=== PATIENT | male | born 1975 ===

== ENCOUNTER 2023-12-09 06:14 | Day surgery (SDC) | payer BC, SELFPAY ==
[2023-12-09 06:20] VITALS: BP 105/76; BMI 25.8
[2023-12-09] MEDS: TYLENOL 1000 MG PO (06:36)
[2023-12-09] MEDS: NORMOSOL-R 1000 IV (06:37)
[2023-12-09 06:43] VITALS: BMI 25.8
--- NOTE | 2023-12-09 07:49 | W.SUR.PREOP ---
Pre-Operative Surgical Note
-
I have examined this patient prior to the performance of the scheduled procedure.
The patient's condition is unchanged from the time of the current History and
Physical and the patient is able to undergo the scheduled procedure.
--- NOTE | 2023-12-09 07:49 | W.IMMPOSTOP ---
Surgical Immed Post Op Note
-
Primary Surgeon: Cliff Colvin MD
Assisting Surgeon: None
Pre-op Diagnosis: Left groin mass, right thigh skin tag
Post-op Diagnosis: Same
Procedure Performed:
1. Excision of subcutaneous mass, left groin
2. Excision of skin tag, right thigh
Anesthesia Type: General
Specimen / Cultures:
1. Left groin mass
Estimated Blood Loss: 1 cc
Complications: None
Operative Findings: Roughly 2 x 2 x 1 cm pearly white kidney been shaped mass in the subcutaneous scrotum/left groin ?Leiomyoma. Right thigh skin tag.
POST OP PLAN:
Will discharge home
[2023-12-09 07:52] VITALS: BP 93/56
--- NOTE | 2023-12-09 07:52 | OR.RPT ---
Operative Report
Operative Report
Patient Name: Jose Alberto Askew
: 1975
Date of Operation: 12/09/2023
Preoperative Diagnosis: Left groin mass, right thigh skin tag
Postoperative Diagnosis: Same
Procedure(s):
1.� Excision of subcutaneous mass, left groin
2.� Excision of skin tag, right thigh
Surgeon(s):
Dr. Colvin
Campus Ambassador(s):
None
Anesthesia: MAC
Estimated Blood Loss: 1 cc
Urine Output: None
Drains/Lines/Implants: None
Specimens:
1. Left groin mass
Indication for surgery:
This is a 48-year-old male with a palpable and mildly symptomatic lump on his left groin/upper left scrotum. After discussion of risk benefits and alternatives he elected and was consented for surgery. On the day of surgery, he also mentioned a
right thigh skin tag that was also somewhat bothersome which he asked us to remove.
Findings at the time of surgery:
Patient had a 2 x 2 x 1 cm, pearly white kidney mccain shaped subcutaneous mass in his left groin/upper scrotum. Routine right thigh skin tag.
Details of the operation:
The patient was brought to the operating room a placed in the supine position. After appropriate sedation by anesthesia, the area of the back was prepped and draped in the usual fashion. An elliptical incision over natural skin line was made over
the mass in the left groin and carried down through the subcutaneous tissue. A roughly 2 x 2 x 1 cm white mass was dissected off of the surrounding tissues using sharp with a 15 blade and blunt dissection as well as electrocautery. It was freed
circumferentially and as passed off the field. The cavity was irrigated and hemostasis was achieved. The space was closed with interrupted 3-0 Vicryl subdermals. The right thigh skin tag was removed using a 15 blade. Both wounds were then
dressed with Dermabond. All counts were correct at the end of procedure. The patient was then transferred to the PACU for recovery.
I was the attending physician and performed the procedure with no assistance. I was present for all portions of the case
Cliff Colvin MD
[2023-12-09 08:00] VITALS: BP 92/50
[2023-12-09 08:15] VITALS: BP 93/62
[2023-12-09 08:30] VITALS: BP 96/66
== END 2023-12-09 09:15 | disposition home or self-care (01) ==
LOC: SDS 06:14
PROVIDERS: ATTENDING PHYSICIAN Surgery
DX: D21.5 Benign neoplasm of connective and other soft tissue of pelvis (principal); L91.8 Other hypertrophic disorders of the skin
CPT/HCPCS: 27047; 11200; 88307; 88341; 88342